=== PATIENT | male | born 1960 | race African-American/Black ===

== ENCOUNTER 2023-06-28 11:48 | Emergency (ER) | payer MEDICAID, OTHER ==
[~2023-06-28] VITALS: Ht 180.3 cm; Wt 74.0 kg
[2023-06-28 11:59] VITALS: BP 113/79; RESP 20; TEMP 98.7; O2SAT 99
[2023-06-28] MEDS ORDERED: IBUP-2029 MT (15:11)
[2023-06-28] MEDS ORDERED: METH-653 MT (15:11)
[2023-06-28 15:37] VITALS: PULSE 65
== END 2023-06-28 15:38 | disposition home or self-care (01) ==
LOC: ER 12:26
DX: M25.512 Pain in left shoulder (principal); M25.511 Pain in right shoulder
CPT/HCPCS: 73030; 99283

== ENCOUNTER 2024-05-11 16:10 | Emergency (ER) | payer OTHER ==
[~2024-05-11] VITALS: Ht 180.3 cm; Wt 74.1 kg
[~2024-05-11 16:10] MED LIST: IBUP-2029 MT; METH-653 MT
[2024-05-11 16:17] VITALS: O2SAT 98
[2024-05-11] MEDS: TETRACAINE 0.5% OPHTH DROPS 4ML RIGHTEYE ONE (16:45)
[2024-05-11 20:09] VITALS: BP 146/92; PULSE 60; RESP 20; TEMP 98.7
== END 2024-05-11 20:14 | disposition home or self-care (01) ==
LOC: ER 16:27
DX: H53.8 Other visual disturbances (principal)
CPT/HCPCS: 70480; 99284